=== PATIENT | male | born 1995 | race Caucasian/White ===

== ENCOUNTER 2020-09-24 | Emergency (ER) | payer OTHER ==
--- NOTE | 2020-09-24 12:59 | ED ---
General Adult HPI - General Chief complaint: ENT Stated complaint: ear pain Time Seen by Provider: 09/24/20 12:39 Source: patient, RN notes reviewed Mode of arrival: ambulatory Limitations: no limitations - History of Present Illness Initial comments: 24-year-old male without any past medical history presents to the emergency room for bilateral ear pressure. Patient reports that for the past 2 months he has had bilateral ear pressure and ringing in his ears. States he saw urgent care in the teeth and a steroid and antibiotic. Patient states he saw his primary care doctor who started him on a nasal spray and referred him to ENT. Patient states he has an appointment in one week however 4 days ago the pain worsened in the left ear. Mother reports they presented to the emergency department today for ENT evaluation.Patient has no other complaints at this time including shortness of breath, chest pain, abdominal pain, nausea or vomiting, headache, or visual changes. - Related Data Previous Rx's Medication Instructions Recorded Loratadine [Claritin] 10 mg PO DAILY #20 tab 09/24/20 Allergies Allergy/AdvReac Type Severity Reaction Status Date / Time No Known Allergies Allergy Verified 09/24/20 12:14 Review of Systems ROS Statement: Those systems with pertinent positive or pertinent negative responses have been documented in the HPI. ROS Other: All systems not noted in ROS Statement are negative. Past Medical History Past Medical History: No Reported History History of Any Multi-Drug Resistant Organisms: None Reported Past Surgical History: No Surgical Hx Reported Past Psychological History: No Psychological Hx Reported Smoking Status: Never smoker Past Alcohol Use History: Occasional Past Drug Use History: Marijuana General Exam Limitations: no limitations General appearance: alert, in no apparent distress Head exam: Present: atraumatic, normocephalic, normal inspection Eye exam: Present: normal appearance, PERRL, EOMI. Absent: scleral icterus, conjunctival injection, periorbital swelling ENT exam: Present: normal exam, normal oropharynx, mucous membranes moist, TM's normal bilaterally, normal external ear exam Neck exam: Present: normal inspection. Absent: tenderness, meningismus, lymphadenopathy Respiratory exam: Present: normal lung sounds bilaterally. Absent: respiratory distress, wheezes, rales, rhonchi, stridor Cardiovascular Exam: Present: regular rate, normal rhythm, normal heart sounds. Absent: systolic murmur, diastolic murmur, rubs, gallop, clicks GI/Abdominal exam: Present: soft, normal bowel sounds. Absent: distended, tenderness, guarding, rebound, rigid Course Vital Signs 09/24/20 12:08 Temperature 98.3 F Pulse Rate 84 Respiratory 16 Rate Blood Pressure 132/91 O2 Sat by Pulse 98 Oximetry Medical Decision Making - Medical Decision Making Vitals are stable. Patient is well-appearing. Bilateral tympanic membranes nonerythematous, nonbulging. Normal external auditory canal. No cerumen impaction. Mother would like ENT evaluation. I did inform her that unfortunately ENT does not work in the ER and they will need to follow up outpatient. We will try Claritin daily as well as continuing the nasal spray which may help. At this time there is no indication for antibiotics. No fever or erythema of the tympanic membrane. I did give him another name for ENT in case he can get in before next week. Disposition Clinical Impression: Bilateral tinnitus, Discomfort of both ears Disposition: HOME SELF-CARE Condition: Good Instructions (If sedation given, give patient instructions): Earache (ED), Tinnitus (ED) Additional Instructions: Please take Claritin as directed. Take motrin and tylenol for pain. Use nasal spray daily. Follow-up with ENT. Return to the emergency room for any worsening symptoms. Prescriptions: Loratadine [Claritin] 10 mg PO DAILY #20 tab Is patient prescribed a controlled substance at d/c from ED?: No Referrals: Balta Kenney DO [Primary Care Provider] - 1-2 days Josh Denton MD [STAFF PHYSICIAN] - 1-2 days Time of Disposition: 12:58
== END 2020-09-24 13:15 | disposition home or self-care (01) ==
CPT/HCPCS: 99283